=== PATIENT | male | born 1950 ===

== ENCOUNTER 2017-05-24 05:50 | Day surgery (SDC) | payer OTHER | END 2017-05-24 09:15 | disposition home or self-care (01) | LOC: AMB-ENDOS 05:50 | DX: D12.8 Benign neoplasm of rectum (principal) ==

== ENCOUNTER 2017-06-15 08:30 | Inpatient (IN) | payer OTHER ==
[~2017-06-15] VITALS: Ht 175.3 cm; Wt 77.1 kg
[2017-06-21] MEDS ORDERED: AMOX-CLAV 875-1 EACH PO (13:26)
[2017-06-21] MEDS ORDERED: INTESTINEX680 M1 PO (13:26)
== END 2017-06-21 13:45 | disposition home or self-care (01) | DRG 376 ==
LOC: SURH 06-18 08:30 → O/R 06-18 08:30 → SURH 06-18 10:00
PROVIDERS: Surgery
PROC: 3E0T3BZ Introduction of Anesthetic Agent into Peripheral Nerves and Plexi, Percutaneous Approach (ICD-10-PCS; 2017-06-18)
PROC: 0DBP8ZZ Excision of Rectum, Via Natural or Artificial Opening Endoscopic (ICD-10-PCS; principal; 2017-06-18 10:00)
DX: C20 Malignant neoplasm of rectum (principal); I10 Essential (primary) hypertension; F17.210 Nicotine dependence, cigarettes, uncomplicated